=== PATIENT | male | born 1945 | race Caucasian/White ===

== ENCOUNTER → 2016-10-05 | Outpatient (CLI) | payer MEDICARE, OTHER | LOC: MW.CHGS 08:00 | PROVIDERS: ATTEND Surgery | DX: R10.30 Lower abdominal pain, unspecified (principal); N40.0 Benign prostatic hyperplasia without lower urinary tract symptoms; I10 Essential (primary) hypertension; H91.90 Unspecified hearing loss, unspecified ear | CPT/HCPCS: 99203 ==

== ENCOUNTER 2020-09-09 06:27 | Observation (INO) | payer MEDICARE, OTHER ==
[~2020-09-09 06:27] MED LIST: Sodium Chloride 0.9% 10 ML SDV IV PRN; Sodium Chloride 0.9% 10 ML Syringe FLUSH PRN; Sodium Chloride 0.9% 2.5 ML Syringe FLUSH PRN
[2020-09-09] MEDS: Lactated Ringers 1,000 ML IV SCH ×2 (06:48→14:52)
--- NOTE | 2020-09-09 07:03 | PCM.PREANE ---
Preanesthetic Assessment - Anesthesia/Transfusion/Family Hx Anesthesia History: Prior Anesthesia Without Reaction Family History of Anesthesia Reaction: No Transfusion History: No Prior Transfusion(s) - Review of Systems General: No Symptoms Pulmonary: No Symptoms Cardiovascular: No Symptoms Gastrointestinal: No Symptoms Neurological: No Symptoms Other: Reports: None - Physical Assessment NPO Status Date: 09/08/20 NPO Status Time: 18:30 Vital Signs: Last Vital Signs Temp 36.3 C 09/09/20 06:41 Pulse 74 09/09/20 06:41 Resp 16 09/09/20 06:41 BP 159/94 H 09/09/20 06:41 Pulse Ox 99 09/09/20 06:41 Height: 1.78 m Weight: 63.957 kg ASA Class: 2 Mental Status: Alert & Oriented x3 Airway Class: Mallampati = 2 Dentition: Reports: [place](s) Thyro-Mental Finger Breadths: 2 Mouth Opening Finger Breadths: 3 ROM/Head Extension: Full Lungs: Clear to Auscultation, Normal Respiratory Effort Cardiovascular: Regular Rate, Regular Rhythm - Allergies Allergies/Adverse Reactions: Allergies Allergy/AdvReac Type Severity Reaction Status Date / Time No Known Allergies Allergy Verified 09/09/20 07:05 - Acknowledgements Anesthesia Type Planned: General Anesthesia (The patient understands and accepts the anesthetic risks and benefits of General Anesthesia. All questions answered. Consent signed. ) Pt an Appropriate Candidate for the Planned Anesthesia: Yes Alternatives and Risks of Anesthesia Discussed w Pt/Guardian: Yes Pt/Guardian Understands and Agrees with Anesthesia Plan: Yes PreAnesthesia Questionnaire HEENT History: Reports: Hard of Hearing, Other (See Below) Other HEENT History: reading glasses, has krissy hearing aids but states he only wears the right Cardiovascular History: Reports: Afib (History of Atrial Fibrillation was noted in the chart. Sister is present at bedside, and was unaware. Patient denies this. Patient is not taking any blood thinners at this time. METS>5,), High Cholesterol, Hypertension, Other (See Below) (METS > 5) Respiratory History: Reports: None Gastrointestinal History: Reports: None Genitourinary History: Reports: BPH Musculoskeletal History: Reports: None Neurological History: Reports: None Psychiatric History: Reports: None Endocrine/Metabolic History: Reports: None Hematologic History: Reports: None Immunologic History: Reports: None Oncologic (Cancer) History: Reports: None Dermatologic History: Reports: None - Infectious Disease History Infectious Disease History: Reports: Pertussis (Whooping Cough), Other (See Below) (COVID NEGATIVE (AUGUST 2020)) - Past Surgical History Head Surgeries/Procedures: Reports: None HEENT Surgical History: Reports: Tonsillectomy Other HEENT Surgeries/Procedures: hx ear surgery, Cardiovascular Surgical History: Reports: None Respiratory Surgical History: Reports: None GI Surgical History: Reports: Colonoscopy, Hernia, Inguinal Male Surgical History: Reports: None Endocrine Surgical History: Reports: None Neurological Surgical History: Reports: None Musculoskeletal Surgical History: Reports: None Oncologic Surgical History: Reports: None Dermatological Surgical History: Reports: None - History Comment History Comment: PATIENT IS ALERT, AND ORIENTED TO PERSON, PLACE, AND TIME. LABS from Jul 2020 reviewed. - SUBSTANCE USE Tobacco Use Status *Q: Never Tobacco User Second Hand Smoke Exposure: No Days Per Week of Alcohol Use: 1 Recreational Drug Use History: No - HOME MEDS Home Medications: Home Meds Calcium Carbonate/Vitamin D3 [Caltrate 600+D 1500 MG-400 Units] 1 tab PO DAILY 09/03/20 [History] Simvastatin 40 mg PO BEDTIME 09/03/20 [History] lisinopriL [Lisinopril] 10 mg PO DAILY 09/03/20 [History] - CURRENT (IN HOUSE) MEDS Current Meds: Current Medications Lactated Ringer's (Ringers, Lactated) 1,000 mls @ 100 mls/hr IV ASDIRECTED [facility] Last Admin: 09/09/20 06:48 Dose: 100 mls/hr Documented by: Cefazolin Sodium/Dextrose 2 gm (/ Premix) 50 mls @ 100 mls/hr IV Q6H [facility] Sodium Chloride (Sodium Chloride 0.9% 10 Ml Syringe) 10 ml FLUSH ASDIRECTED PRN PRN Reason: Keep Vein Open Sodium Chloride (Sodium Chloride 0.9% 2.5 Ml Syringe) 2.5 ml FLUSH ASDIRECTED PRN PRN Reason: Keep Vein Open Sodium Chloride (Sodium Chloride 0.9% 10 Ml Sdv) 10 ml IV ASDIRECTED PRN PRN Reason: IV Use
[2020-09-09] MEDS ORDERED: Propofol 200 MG/20 ML SDV ONE ×2 (09:04→09:50)
[2020-09-09] MEDS ORDERED: Lidocaine 2% 5 ML SDV ONE (09:05)
[2020-09-09] MEDS ORDERED: Rocuronium Bromide 50 MG/5 ML Syringe ONE (09:05)
[2020-09-09] MEDS ORDERED: Midazolam 1 MG/ML 2 ML SDV ONE (09:05)
[2020-09-09] MEDS ORDERED: Ondansetron 4 MG/2 ML SDV ONE (09:05)
[2020-09-09] MEDS ORDERED: fentaNYL 250 MCG/5 ML SDV ONE (09:05)
[2020-09-09] MEDS ORDERED: Ketorolac 30 MG/ML SDV ONE (09:05)
[2020-09-09] MEDS ORDERED: Glycopyrrolate 0.2 MG/ML SDV ONE (09:05)
[2020-09-09] MEDS ORDERED: Sodium Chloride 0.9% 20 ML ONE (09:18)
[2020-09-09] MEDS ORDERED: ceFAZolin 1 GM Vial ONE (09:18)
[2020-09-09] MEDS ORDERED: Atropine 0.1 MG/ML 10 ML Syringe IVPUSH PRN ×2 (10:27)
[2020-09-09] MEDS ORDERED: fentaNYL 100 MCG/2 ML SDV IVPUSH PRN (10:27)
[2020-09-09] MEDS ORDERED: 50% Dextrose in Water 50 ML Syringe IVPUSH PRN (10:27)
[2020-09-09] MEDS ORDERED: Naloxone 0.4 MG/ML Syringe IVPUSH PRN (10:27)
[2020-09-09] MEDS ORDERED: Albuterol 0.083% 2.5 MG/3 ML Neb Soln NEB PRN (10:27)
[2020-09-09] MEDS ORDERED: EPINEPHrine 1:10,000 1 MG/10 ML Syringe IVPUSH PRN (10:27)
--- NOTE | 2020-09-09 12:11 | OR ---
SURGEON: Camron Herman M.D. DATE OF PROCEDURE: 09/09/2020 PREOPERATIVE DIAGNOSIS: BPH with obstructive symptoms. POSTOPERATIVE DIAGNOSES: BPH with obstructive symptoms. OPERATION: Transurethral resection of the prostate. DESCRIPTION: The patient was given spinal anesthesia. He was placed in the dorsal lithotomy position, prepped and draped in sterile drapes. The 26 and 28-Grenadian sounds were passed through into the bladder without difficulty. The 28-Grenadian continuous flow resectoscope was then introduced into the bladder. The prostate was resected in the usual fashion starting with the anterior lobe, going on laterally and anteriorly. At the end of the resection, all prostatic chips were removed. Both ureteral orifices were intact. The area of the external sphincter was intact. A 22 three-way [place] catheter with 40 mL in the balloon was left in the bladder connected to TUR drip. Estimated blood loss 100 mL. The patient tolerated the procedure well and was moved to recovery room in good condition. KATHERINE / BARRY /[id number]
--- NOTE | 2020-09-09 12:14 | PCM.POSTAN ---
POST ANESTHESIA ASSESSMENT - MENTAL STATUS Mental Status: Alert, Oriented - VITAL SIGNS Vital Signs: Last Vital Signs Temp 36.1 C 09/09/20 12:05 Pulse 56 L 09/09/20 12:05 Resp 16 09/09/20 12:05 BP 140/70 09/09/20 12:05 Pulse Ox 100 09/09/20 12:05 - RESPIRATORY Respiratory Status: Respiratory Rate WNL, Airway Patent, O2 Saturation Stable - CARDIOVASCULAR CV Status: Pulse Rate WNL, Blood Pressure Stable - GASTROINTESTINAL GI Status: No Symptoms - PAIN Pain Score: 0 - POST OP HYDRATION Hydration Status: Adequate & Stable - OBSERVATIONS Free Text/Narrative:: The patient is awake, alert, and in no acute distress. He has no complaints at this time. There were no apparent anesthetic complications at this time. Discharge to floor per criteria.
[2020-09-09] MEDS ORDERED: D5 1/2 NS w/ 20 mEq/L KCl 1,000 ML IV SCH (17:00)
[2020-09-09] MEDS ORDERED: Belladonna Alkaloids/Opium 16.2-30 MG Supp RECTAL PRN (17:00)
[2020-09-09] MEDS: ceFAZolin 2 GM in Premix Bag 1 BAG IV SCH ×4 (18:20→23:35)
[2020-09-09] MEDS: Nitrofurantoin Monohydrate/Macrocrystalline 100 MG Cap PO SCH (20:12)
[2020-09-09] MEDS: Simvastatin 40 MG Tab PO SCH (20:13)
[2020-09-09] MEDS: Docusate Sodium 100 MG Cap PO SCH (20:13)
[2020-09-09] MEDS: Bacitracin Oint 28.35 GM Tube TOP SCH (21:40)
[2020-09-10] MEDS: Bacitracin Oint 28.35 GM Tube TOP SCH ×3 (06:01→21:10)
[2020-09-10] MEDS: ceFAZolin 2 GM in Premix Bag 1 BAG IV SCH ×3 (06:01→17:14)
[2020-09-10 06:40] LABS: CARBON DIOXIDE,CO2 29.5 mmol/L (21.0-32.0); POTASSIUM,K 4.2 mmol/L (3.5-5.1)
--- NOTE | 2020-09-10 06:54 | PCM48HPAN ---
Post Anesthesia Note - EVALUATION WITHIN 48HRS OF ANESTHETIC Vital Signs in Normal Range: Yes Patient Participated in Evaluation: Yes Respiratory Function Stable: Yes Airway Patent: Yes Cardiovascular Function Stable: Yes Hydration Status Stable: Yes Pain Control Satisfactory: Yes Nausea and Vomiting Control Satisfactory: Yes Mental Status Recovered: Yes Vital Signs: Last Vital Signs Temp 36.6 C 09/10/20 04:00 Pulse 57 L 09/10/20 04:00 Resp 16 09/10/20 04:00 BP 120/69 09/10/20 04:00 Pulse Ox 97 09/10/20 04:00 - COMMENTS/OBSERVATIONS Free Text/Narrative:: The patient is awake, and sitting up in bed. Appears comfortable and in no acute distress. He has no complaints at this time. Discharge from anesthesia service.
[2020-09-10] MEDS: Lisinopril 10 MG Tab PO SCH (08:55)
[2020-09-10] MEDS: Nitrofurantoin Monohydrate/Macrocrystalline 100 MG Cap PO SCH ×2 (08:55→21:06)
[2020-09-10] MEDS: Docusate Sodium 100 MG Cap PO SCH ×2 (08:55→21:07)
[2020-09-10] MEDS: Simvastatin 40 MG Tab PO SCH (21:07)
[2020-09-11] MEDS: ceFAZolin 2 GM in Premix Bag 1 BAG IV SCH ×2 (00:17→05:47)
[2020-09-11] MEDS: Bacitracin Oint 28.35 GM Tube TOP SCH (05:50)
[2020-09-11] MEDS: Lisinopril 10 MG Tab PO SCH (08:48)
[2020-09-11] MEDS: Docusate Sodium 100 MG Cap PO SCH (08:48)
[2020-09-11] MEDS: Nitrofurantoin Monohydrate/Macrocrystalline 100 MG Cap PO SCH (08:49)
== END 2020-09-11 11:20 | disposition home or self-care (01) ==
LOC: MW.SDS 06:27 → MW.MS 11:58 → INTOOBSV 11:58 → MW.MS 14:29
PROVIDERS: ADMIT Urology; ATTEND Urology
DX: N40.1 Benign prostatic hyperplasia with lower urinary tract symptoms (principal); R31.9 Hematuria, unspecified; R35.1 Nocturia; R97.20 Elevated prostate specific antigen [PSA]; I10 Essential (primary) hypertension; E78.00 Pure hypercholesterolemia, unspecified; H90.6 Mixed conductive and sensorineural hearing loss, bilateral; Z79.899 Other long term (current) drug therapy; Z98.890 Other specified postprocedural states; Z87.891 Personal history of nicotine dependence
CPT/HCPCS: 36415; 51702; 52601; 80051; 85025; 88305; A9270; G0378; J0690; J1885; J2250; J2405; J2704; J7120; 00914; J3010; J3490